=== PATIENT | male | born 1960 | race Caucasian/White ===

== ENCOUNTER 2021-12-02 12:07 | Emergency (ER) | payer BC, SELFPAY ==
--- NOTE | ~2021-12-02 | XR_ITS ---
EXAMINATION: XR finger 2nd RT min 2V DATE: 12/02/2021 12:27 INDICATION: Trauma to the right second finger resulting from car door. TECHNIQUE: Dorsal palmar, lateral and 2 oblique views of the right second digit were obtained COMPARISON: None FINDINGS: Alignment is normal. No fracture. 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 Soft tissue swelling at the second digit centered at t he proximal interphalangeal joint. IMPRESSION: 1. No acute osseous abnormality. Reviewed, dictated and finalized at location A.
[2021-12-02 12:11] VITALS: BP 136/63; PULSE 56; RESP 18; TEMP 36.4; O2SAT 100
--- NOTE | 2021-12-02 12:39 | ED.UPPEXIN ---
HPI - Extremity Injury (Upper) General Chief Complaint: Extremity Injury, Upper <Olive Vann PA-C - Last Filed: 12/02/21 19:57> Stated Complaint: smashed finger <Olive Vann PA-C - Last Filed: 12/02/21 19:57> Time Seen by Provider: 12/02/21 12:38 <Olive Vann PA-C - Last Filed: 12/02/21 19:57> Source: patient <Olive Vann PA-C - Last Filed: 12/02/21 19:57> Mode of arrival: ambulatory <Olive Vann PA-C - Last Filed: 12/02/21 19:57> Limitations: no limitations <Olive Vann PA-C - Last Filed: 12/02/21 19:57> History of Present Illness HPI narrative: Patient is a 60 y/o male who presents to the ED with c/o injury to his right index finger. Patient reports he slammed his finger in a heavy door just prior to arrival. He complains of pain to the distal tip of his right second finger. Positive nail disruption. Sustained a small laceration to his medial digit and has since developed bruising under his nail bed. Denies any weakness, numbness, tingling. No other injuries. Tetanus status up to date, 2 years ago. <Olive Vann PA-C - Last Filed: 12/02/21 19:57> Review of Systems Review of Systems: CONSTITUTIONAL: Denies fever. SKIN: Reports laceration to medial R 2nd digit. MUSCULOSKELETAL: Reports pain to R 2nd finger. NEUROLOGIC: Denies tingling, numbness, or weakness. <Olive Vann PA-C - Last Filed: 12/02/21 19:57> All systems reviewed & are unremarkable except as noted in HPI and below <Olive Vann PA-C - Last Filed: 12/02/21 19:57> PMFSH Past Medical History Medical History: Medical History Hypertension <CARMELO Infante Last Filed: 12/02/21 19:57> Surgical History Surgical History: Surgical History (Updated 12/02/21 @ 13:14 by Olive Vann PA-C) History of surgery on arm <Olive Vann PA-C - Last Filed: 12/02/21 19:57> Social History Social History: Social History Smoking status: Never smoker Alcohol intake: current <Olive Vann PA-C - Last Filed: 12/02/21 19:57> Exam Narrative: GENERAL: Well appearing, well-nourished, non-toxic, in no acute distress. HEAD: Normocephalic, atraumatic. RESPIRATORY: Airway patent, respirations nonlabored. Clear to auscultation bilaterally, no rales, rhonchi, wheezing. CARDIOVASCULAR: Regular rate and rhythm without murmurs, rubs, or gallops. Radial pulses 2+ and equal bilaterally. MUSCULOSKELETAL: Sensation intact. Diffuse swelling and ecchymosis of R 2nd digit. TTP of R 2nd digit, worst around DIP joint and distally. Medial nail disruption with proximal nail fold exposed on medial edge. Subungual hematoma. 1 cm laceration to medial distal digit with superficial extension of laceration distally. SKIN: Warm, dry, normal color. No rashes. NEURO: A&O X3. Speech clear. Cranial nerves II-XII grossly intact. Steady gait. No ataxic movements. PSYCHIATRIC: Appropriate mood and affect. Normal interaction. <Olive Vann PA-C - Last Filed: 12/02/21 19:57> Course [employer] TENDER HELPER/PA Physician Supervision For this patient encounter, I reviewed the WHARF TENDER HELPER or PA documentation, treatment plan, and medical decision making; and I had [id number] time with this patient. <Vijay Harper MD - Last Filed: 12/08/21 07:09> Vital Signs Vital signs: Vital Signs Temperature 97.6 F 12/02/21 12:11 Pulse Rate 56 L 12/02/21 12:11 Respiratory Rate 18 12/02/21 12:11 Blood Pressure 136/63 12/02/21 12:11 Pulse Oximetry 100 12/02/21 12:11 Temperature 97.6 F 12/02/21 12:11 Pulse Rate 56 L 12/02/21 12:11 Respiratory Rate 18 12/02/21 12:11 Blood Pressure 136/63 12/02/21 12:11 Pulse Oximetry 100 12/02/21 12:11 <Olive Vann PA-C - Last Filed: 12/02/21 19:57> Vital Signs Temperature 97.6 F 12/02/21 12:11 Pulse Rate 56 L 12/02/21 12:11 Respir
== END 2021-12-02 14:15 | disposition home or self-care (01) ==
PROVIDERS: Emergency Provider Emergency Medicine
DX: S61.310A Laceration without foreign body of right index finger with damage to nail, initial encounter (principal); I10 Essential (primary) hypertension; W23.0XXA Caught, crushed, jammed, or pinched between moving objects, initial encounter
CPT/HCPCS: 11740; 12001; 73140; 99283